=== PATIENT | female | born 1950 | race Caucasian/White ===

== ENCOUNTER 2017-03-01 07:10 | Emergency (ER) | payer SELFPAY ==
[~2017-03-01] VITALS: Ht 165.1 cm; Wt 54.0 kg
[2017-03-01 07:20] VITALS: Ht 165.1 cm; Wt 54.0 kg
[2017-03-01] MEDS ORDERED: IBUP-1542 PO (08:07)
--- NOTE | 2017-03-01 08:23 | ERD ---
ER Documentation Chief Complaint Date/Time DATE: 03/01/17 TIME: 08:14 Chief Complaint HEADACHE AND DIZZINESS STARTING LAST NIGHT. HPI 67-year-old female complaining of discomfort in her chills 1 week. Last night , her trials are becoming very painful, with left jaw worse than the right. The pain is worse when she is chewing. She feels her "teeth are heavy." Denies fever or chills. Denies trauma to the face or head. Denies one-sided weakness or numbness. Denies any medical history. ROS All systems reviewed and are negative except as per history of present illness. Medications Home Meds Active Scripts Ibuprofen* (Motrin*) 600 Mg Tab, 600 MG PO Q6H Y for PAIN AND OR ELEVATED TEMP, #30 TAB Prov:LINHMARITZA Shepherd. 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 03/01/17 Allergies Allergies: Coded Allergies: No Known Allergy (Unverified , 12/25/14) PMhx/Soc Medical and Surgical Hx: pt denies Medical Hx History of Surgery: No Anesthesia Reaction: No Hx Neurological Disorder: No Hx Respiratory Disorders: No Hx Cardiac Disorders: No Hx Psychiatric Problems: No Hx Miscellaneous Medical Probl: No Hx Alcohol Use: No Hx Substance Use: No Hx Tobacco Use: No Smoking Status: Never smoker Physical Exam Vitals Vital Signs Date Time Temp Pulse Resp B/P Pulse Ox O2 Delivery O2 Flow Rate FiO2 03/01/17 07:20 98.7 68 16 152/81 98 Physical Exam General impression: Well-developed, well-nourished. Alert, oriented, in no acute distress Head: Normocephalic, atraumatic. Eyes: PERRL, EOM normal. Sclerae are normal. Conjunctiva not injected. ENT: External canals patent. TM'sclear. Nasal mucosa, oral mucosa and oropharynx are normal. Bilateral TMJ tenderness noted. Neck: Supple, nontender. No lymphadenopathy. No nuchal rigidity. Respiration: Normal respiratory effort. Lungs clear to auscultate bilaterally. No wheezes, rales or rhonchi. Cardiovascular: Regular rate and rhythm. No murmurs or extra heart sounds. Abdomen: Abdomen normal to inspection. Nontender. No masses or organomegaly. Bowel sounds normal. Back: Normal to inspection. No midline spine tenderness. No CVA tenderness. Extremities: Extremities normal to inspection, nontender. ROM normal. Neuro: Mental status normal, speech normal. Left facial droop, symmetrical eyebrow movements. CUSTOMER TRAINER otherwise normal. Normal sensation and strength in all 4 extremities. No focal weakness noted. Skin: Normal turgor. No rash or lesions. Psych: Normal mood and affect. Results 24 hrs Current Medications Medications (Trade) Dose Ordered Sig/Jo Ann Route PRN Reason Start Time Stop Time Status Last Admin Dose Admin Ibuprofen (Motrin) 600 mg ONCE ONCE PO 03/01/17 08:30 03/01/17 08:31 03/01/17 08:09 Procedures/MDM Well-appearing 67-year-old female presented to ED with jaw pain. Her history exam findings are consistent with TMJ syndrome. Patient did exhibit left facial droop, however her son states that she had always looked that way. Your exams are otherwise normal. Low suspicion for stroke. Ibuprofen given to the patient in the ED for pain. Patient appears well, stable for discharge and outpatient management. Medical decision making shared with patient and family. Education provided to patient and family. Patient and family expressed understanding of the plan. Medications on discharge: Ibuprofen. Follow-up: Primary care provider in 2-3 days or return to ED if worse. Departure Diagnosis: Primary Impression: TMJ syndrome Condition: Good Patient Instructions: Tmj Syndrome [facility] Usted se candelaria hecho un examen mdico de control que le indica que no est en [place] condicin que requiera tratamiento urgente en el Departamento de Emergencia. Un estudio ms profundo y el tratamiento de patel condicin pueden esperar sin ningn riesgo hasta que usted sea atendida/o en el consultorio de patel mdico o [place] cl kelsi. Es responsabilidad suya arreglar portia gilles para el seguimiento del franko. MANEJO DE CONDICIONES NO URGENTES EN EL FUTURO 1) Si usted tiene un mdico de atencin primaria: Usted debera llamar a patel mdico de atencin primaria antes de venir al departamento de emergencia. Despus de las horas de consultorio, patel doctor o patel asociado/a est disponible por telfono. El mdico o enfermero de can en el servicio telefnico puede asesorarle por lizeth medio para atender el problema, o franko contrario se puede programar port[place] gilles. 2) Si usted no tiene un mdico de atencin primaria: Llame al mdico o clnica de referencia que aparece abajo kera las horas de consultorio para hacer [place] gilles para que le vean. CLINICAS: [facility] [phone] [facility] [phone] [address] [facility] [phone] [address] [facility]. [place] [address] [phone] [facility]. [place] [phone] [facility] [phone] [address] Additional Instructions: Llame al doctor nombrado abajo (Referral Sources) MAANA y danish port[place] GILLES PARA DENTRO DE PORTIA SEMANA. Dgale a la secretaria que nosotros le instruimos hacer esta gilles.Avise o llame si patel condicin se empeora antes de la gilles. MARITZA MELTON NP Mar 01, 2017 08:23
[2017-03-01] MEDS ORDERED: IBUPROFEN 600 MG TAB PO ONE (08:30)
== END 2017-03-01 08:35 | disposition home or self-care (01) ==
LOC: FTE 07:10
DX: M26.622 Arthralgia of left temporomandibular joint (principal)
CPT/HCPCS: 99283